=== PATIENT | female | born 1960 | race African-American/Black ===

== ENCOUNTER 2024-08-26 11:26 | Emergency (ER) | payer MEDICARE ==
[~2024-08-26] VITALS: Ht 160 cm; Wt 72.5 kg
[2024-08-26 11:32] VITALS: O2SAT 100
[2024-08-26 11:36] VITALS: BP 212/128; PULSE 111; RESP 16; TEMP 97.9; O2SAT 100
[2024-08-26] MEDS ORDERED: ACET-2708 MT (12:10)
[2024-08-26] MEDS ORDERED: LIDO700A15 TP (12:10)
[2024-08-26] MEDS ORDERED: CAPS42.514 TP (12:51)
== END 2024-08-26 14:25 | disposition home or self-care (01) ==
LOC: ER 11:41
DX: M25.552 Pain in left hip (principal); I10 Essential (primary) hypertension; Z98.890 Other specified postprocedural states; W18.30XA Fall on same level, unspecified, initial encounter; Y93.89 Activity, other specified; Y92.89 Other specified places as the place of occurrence of the external cause; Y99.8 Other external cause status
CPT/HCPCS: 73521; 99283

== ENCOUNTER 2024-08-31 11:44 | Emergency (ER) | payer MEDICARE ==
[~2024-08-31] VITALS: Ht 160 cm; Wt 77.1 kg
[~2024-08-31 11:44] MED LIST: ACET-2708 MT; CAPS42.514 TP; LIDO700A15 TP
[2024-08-31 11:49] VITALS: O2SAT 99
[2024-08-31 11:56] VITALS: TEMP 98.3; O2SAT 100
[2024-08-31] MEDS ORDERED: KETOROLAC 30MG/ML VIAL IM ONE (13:15)
[2024-08-31] MEDS ORDERED: KETO10TA2 MT (15:19)
[2024-08-31 16:08] VITALS: BP 194/130; PULSE 100; RESP 16
[2024-08-31] MEDS: KETOROLAC 30MG/ML VIAL IM NR (16:08)
== END 2024-08-31 16:10 | disposition home or self-care (01) ==
LOC: ER 11:44
DX: M79.605 Pain in left leg (principal); I10 Essential (primary) hypertension; Z98.890 Other specified postprocedural states
CPT/HCPCS: 99284; 73562; 73590; 96372; J1885